=== PATIENT | female | born 1970 | race Caucasian/White ===

== ENCOUNTER 2024-02-23 12:12 | Observation (INO) | payer OTHER ==
[2024-02-23] MEDS ORDERED: LIDOCAINE 5% TOPICAL PATCH ONE (12:53)
[2024-02-23] MEDS ORDERED: KETOROLAC TROMETHAMINE 15 MG/ML VIAL ONE (12:53)
[2024-02-23 12:57] LABS: HEMATOCRIT 37.5 % (32.4-45.2); HEMOGLOBIN 12.1 G/dL (10.7-15.3); MCH 27.1 pg (25.7-33.7); MCHC 32.2 g/dl (32.0-36.0); MEAN CELL VOLUME 84.2 fl (80-96); MEAN PLT VOLUME 9.2 fl (7.5-11.1); PLATELET COUNT 246.9 10^3/uL (134-434); RBC 4.45 10^6/uL (3.60-5.2); WHITE BLOOD COUNT 8.6 10^3/uL (4.0-10.8)
[2024-02-23] MEDS: KETOROLAC TROMETHAMINE 15 MG/ML VIAL IVPUSH ONE (13:02)
[2024-02-23 13:22] LABS: PLATELET ESTIMATE ADEQUATE
[2024-02-23 13:25] LABS: ALBUMIN 4.7 g/dl (3.4-5.0); ALK PHOS 103 U/L (45-117); ANION GAP 6 mmol/L (4-13); BILIRUBIN,TOTAL 0.5 mg/dl (0.2-1); CALCIUM 9.9 mg/dl (8.5-10.1); CHLORIDE 102 mmol/L (98-107); CO2 31 mmol/L (21-32); CREATININE 0.7 mg/dl (0.6-1.3); GLUCOSE,RANDOM 118 mg/dl (74-106); POTASSIUM 3.6 mmol/L (3.5-5.1); SGOT/AST 27 U/L (15-37); SGPT/ALT 30 U/L (7-52); SODIUM 139 mmol/L (136-145); TOT PROT 7.3 g/dl (6.4-8.2)
[2024-02-23 13:33] LABS: EPITHELIAL CELLS 0-5 /hpf
[2024-02-23] MEDS ORDERED: morphine SULFATE 4 MG/ML VIAL ONE (14:09)
[2024-02-23] MEDS: morphine CARPU-JECT 4 MG/1 ML DISP.SYRIN IVPUSH ONE (14:18)
[2024-02-23] MEDS: SODIUM CHLORIDE 0.9% 500 ML INFUS.BAG IV ONE (15:27)
[2024-02-23] MEDS: LIDOCAINE 5% TOPICAL PATCH TP ONE (17:28)
[2024-02-23] MEDS: MAG HYDROX/AL HYDROX/SIMETH -MYLANTA- ORAL SUSPENSION PO ONE (18:50)
[2024-02-23] MEDS: ONDANSETRON 4 MG/2 ML VIAL IVPUSH ONE (18:50)
[2024-02-23] MEDS ORDERED: MAG HYDROX/AL HYDROX/SIMETH 30 ML UNIT-DOSE CUP ONE (18:51)
[2024-02-23] MEDS ORDERED: ACETAMINOPHEN INJECTION 100 ML ONE (18:51)
[2024-02-23] MEDS ORDERED: FAMOTIDINE 20 MG TABLET ONE (18:51)
[2024-02-23] MEDS ORDERED: ONDANSETRON 4 MG/2 ML VIAL ONE (18:51)
[2024-02-23] MEDS: FAMOTIDINE 20 MG TABLET PO ONE (18:51)
[2024-02-23] MEDS: ACETAMINOPHEN 1000 MG/100 ML BAG IVPB ONE (19:02)
[2024-02-23] MEDS ORDERED: METOCLOPRAMIDE HCL INJECTION 10 MG/2 ML VIAL ONE (19:48)
[2024-02-23] MEDS: METOCLOPRAMIDE HCL INJECTION 10 MG/2 ML VIAL IVPUSH ONE (20:01)
[2024-02-23 21:58] VITALS: BMI 27.3
[2024-02-23] MEDS: LIDOCAINE PATCH REMOVAL MC ONE (22:00)
[2024-02-24 01:43] VITALS: RESP 18
[2024-02-24] MEDS ORDERED: ONDANSETRON 4 MG/2 ML VIAL IVPUSH PRN (07:28)
[2024-02-24 08:32] LABS: HEMATOCRIT 34.7 % (32.4-45.2); HEMOGLOBIN 11.3 G/dL (10.7-15.3); MCH 27.2 pg (25.7-33.7); MCHC 32.5 g/dl (32.0-36.0); MEAN CELL VOLUME 83.8 fl (80-96); MEAN PLT VOLUME 9.8 fl (7.5-11.1); PLATELET COUNT 254.9 10^3/uL (134-434); RBC 4.14 10^6/uL (3.60-5.2); RDW 15.5 % (11.6-15.6); WHITE BLOOD COUNT 10.5 10^3/uL (4.0-10.8)
[2024-02-24 09:15] LABS: CALCIUM 9.7 mg/dl (8.5-10.1); CREATININE 0.8 mg/dl (0.6-1.3); MAGNESIUM 2.1 mg/dL (1.8-2.4); PHOSPHOROUS 4.3 (2.5-4.9); POTASSIUM 4.1 mmol/L (3.5-5.1)
[2024-02-24] MEDS: LOSARTAN POTASSIUM 50 MG TABLET PO SCH (09:28)
[2024-02-24] MEDS: ACETAMINOPHEN 500 MG TABLET (FP) PO SCH (09:29)
[2024-02-24] MEDS: NAPROXEN 500 MG TABLET PO SCH (09:29)
[2024-02-24] MEDS: FAMOTIDINE 20 MG TABLET PO SCH (09:30)
[2024-02-24] MEDS: ENOXAPARIN NA (PORCINE) 40 MG/0.4 ML DISP.SYRIN SQ SCH (09:30)
[2024-02-24] MEDS: LIDOCAINE 5% TOPICAL PATCH TP SCH (09:30)
[2024-02-24] MEDS ORDERED: INSULIN ASPART SLIDING SCALE (NOVOLOG) 1 VIAL SQ SCH (11:00)
[2024-02-24 14:13] VITALS: BP 133/80; PULSE 84; TEMP 98.6
[2024-02-24] MEDS ORDERED: LIDOCAINE PATCH REMOVAL MC SCH (22:00)
== END 2024-02-24 16:23 | disposition home or self-care (01) ==
LOC: FER 12:12 → FM/S 19:30
PROVIDERS: ADMIT Internal Medicine; ATTEND Internal Medicine
PROC: 3E023GC Introduction of Other Therapeutic Substance into Muscle, Percutaneous Approach (ICD-10-PCS; principal; 2024-02-23)
PROC: 3E0333Z Introduction of Anti-inflammatory into Peripheral Vein, Percutaneous Approach (ICD-10-PCS; 2024-02-23)
PROC: 3E033GC Introduction of Other Therapeutic Substance into Peripheral Vein, Percutaneous Approach (ICD-10-PCS; 2024-02-23)
PROC: 3E033NZ Introduction of Analgesics, Hypnotics, Sedatives into Peripheral Vein, Percutaneous Approach (ICD-10-PCS; 2024-02-23)
PROC: 3E0337Z Introduction of Electrolytic and Water Balance Substance into Peripheral Vein, Percutaneous Approach (ICD-10-PCS; 2024-02-23)
DX: M54.9 Dorsalgia, unspecified (principal); R07.9 Chest pain, unspecified; R11.0 Nausea; E11.9 Type 2 diabetes mellitus without complications; I10 Essential (primary) hypertension; K21.9 Gastro-esophageal reflux disease without esophagitis; R42 Dizziness and giddiness; R31.9 Hematuria, unspecified
CPT/HCPCS: 0241U-QW; 36415; 70450-TC; 71275-TC; 72128-TC; 72131-TC; 74174-TC; 74176-TC; 80048; 80053; 81003; 81015; 82962; 83735; 84100; 84443; 84484; 85027; 87086; 93005; 93306-TC; 96372; 96374; 96375; 97116-GP; 97161-GP; 99285-25; G0378; J0131

== ENCOUNTER 2024-08-11 10:09 | Inpatient (IN) | payer OTHER ==
[2024-08-11 10:30] VITALS: BMI 28.1
[2024-08-11] MEDS ORDERED: ACETAMINOPHEN INJECTION 100 ML ONE (10:54)
[2024-08-11] MEDS ORDERED: ONDANSETRON 4 MG/2 ML VIAL ONE (10:55)
[2024-08-11] MEDS: ACETAMINOPHEN 1000 MG/100 ML BAG IVPB ONE (11:16)
[2024-08-11] MEDS: SODIUM CHLORIDE 1,000 ML IV STA ×2 (11:16→12:33)
[2024-08-11] MEDS: ONDANSETRON 4 MG/2 ML VIAL IVPUSH ONE (11:17)
[2024-08-11 11:43] LABS: ABSOLUTE IMMATURE GRANULOCYTES 0.06 x10^3/uL (0.0-0.031); BASOPHILS # 0.02 x10^3/uL (0.01-0.08); EOSINOPHIL % 0.5 % (0.7-5.8); EOSINOPHILS # 0.07 x10^3/uL (0.04-0.36); HEMATOCRIT 37.9 % (34.1-44.9); HEMOGLOBIN 12.5 g/dL (11.2-15.7); MEAN PLT VOLUME 11.4 fl (9.4-12.3); MONOCYTE % 2.9 % (4.7-12.5); PLATELET COUNT 295 x10^3/uL (182-369); RDW 13.2 % (12.3-16.6)
[2024-08-11 11:50] LABS: INR 1.06 (0.83-1.09); PROTHROMBIN TIME (PATIENT) 11.6 SEC (9.7-13.0)
[2024-08-11 11:52] LABS: ACTIVATED PTT 25.9 SECONDS (25.2-36.5)
[2024-08-11 12:07] LABS: POTASSIUM 3.4 mmol/L (3.5-5.1)
[2024-08-11 12:09] LABS: ALBUMIN 4.4 g/dl (3.4-5.0); MAGNESIUM 1.7 mg/dL (1.8-2.4)
[2024-08-11 12:10] LABS: BLOOD UREA NITROGEN 15.2 mg/dL (7-18)
[2024-08-11 12:12] LABS: CREATININE 0.9 mg/dL (0.55-1.3)
[2024-08-11 12:14] LABS: BILIRUBIN,TOTAL 0.6 mg/dL (0.2-1)
[2024-08-11 12:15] LABS: PH,URINE 7.5 (5.0-8.0); URINE APPEARANCE CLEAR; URINE BILIRUBIN NEGATIVE (NEGATIVE); URINE COLOR YELLOW; URINE GLUCOSE (UA) NEGATIVE (NEGATIVE); URINE KETONE NEGATIVE (NEGATIVE); URINE PROTEIN NEGATIVE (NEGATIVE); URINE UROBILINOGEN 0.2 mg/dL (0.2-1.0)
[2024-08-11 12:17] LABS: URINE LEUK ESTERASE NEGATIVE (NEGATIVE); URINE NITRITE NEGATIVE (NEGATIVE)
[2024-08-11] MEDS ORDERED: MAGNESIUM SULFATE IN WATER 2 GM/50 ML IVPB IVPB ONE (13:47)
[2024-08-11] MEDS ORDERED: POTASSIUM CHLORIDE TABS 20 MEQ TABLET.ER (FP) PO ONE (13:47)
[2024-08-11] MEDS ORDERED: POTASSIUM CHLORIDE ORAL LIQUID 20 MEQ/15 ML ONE (13:48)
[2024-08-11] MEDS: MAGNESIUM SULFATE IN WATER 2 GM/50 ML IVPB IVPB ONE (13:58)
[2024-08-11] MEDS: POTASSIUM CHLORIDE ORAL LIQUID 20 MEQ/15 ML PO ONE (13:58)
[2024-08-11] MEDS ORDERED: TRIMETHOBENZAMIDE HCL 200MG/2ML INJ IM ONE (14:01)
[2024-08-11] MEDS: TRIMETHOBENZAMIDE HCL 200MG/2ML INJ IM ONE (14:09)
[2024-08-11] MEDS ORDERED: LORazepam 2 MG/ML SDV VIAL ONE (16:25)
[2024-08-11] MEDS: LORazepam 2 MG/ML SDV VIAL IVPUSH ONE (16:35)
[2024-08-11] MEDS: SODIUM CHLORIDE 0.45% 1,000 ML IV SCH (19:02)
[2024-08-11] MEDS: ACETAMINOPHEN 1000 MG/100 ML BAG IVPB PRN (20:08)
[2024-08-11] MEDS: ONDANSETRON 4 MG/2 ML VIAL IVPUSH PRN (20:08)
[2024-08-11] MEDS: INSULIN ASPART SLIDING SCALE (NOVOLOG) 1 VIAL SQ SCH (21:46)
[2024-08-11] MEDS: PROCHLORPERAZINE INJECTION 10 MG/2 ML VIAL IVPB ONE (23:24)
[2024-08-11] MEDS: KETOROLAC TROMETHAMINE 15 MG/ML VIAL IVPUSH ONE (23:24)
[2024-08-12 07:57] LABS: ABSOLUTE IMMATURE GRANULOCYTES 0.04 x10^3/uL (0.0-0.031); BASOPHILS # 0.02 x10^3/uL (0.01-0.08); EOSINOPHIL % 0.1 % (0.7-5.8); EOSINOPHILS # 0.01 x10^3/uL (0.04-0.36); HEMATOCRIT 35.6 % (34.1-44.9); HEMOGLOBIN 11.3 g/dL (11.2-15.7); MCHC 31.7 g/dl (32.2-35.5); MEAN PLT VOLUME 11.1 fl (9.4-12.3); MONOCYTE # 0.78 x10^3/uL (0.24-0.86); MONOCYTE % 7.6 % (4.7-12.5); PLATELET COUNT 255 x10^3/uL (182-369); RDW 13.7 % (12.3-16.6)
[2024-08-12 08:10] LABS: POTASSIUM 3.5 mmol/L (3.5-5.1)
[2024-08-12 08:25] LABS: ALBUMIN 3.9 g/dl (3.4-5.0); CALCIUM 9.2 mg/dL (8.5-10.1)
[2024-08-12 08:26] LABS: BLOOD UREA NITROGEN 20.6 mg/dL (7-18)
[2024-08-12 08:30] LABS: BILIRUBIN,TOTAL 0.4 mg/dL (0.2-1)
[2024-08-12] MEDS: LOSARTAN POTASSIUM 50 MG TABLET PO SCH (10:25)
[2024-08-12] MEDS: ENOXAPARIN NA (PORCINE) 40 MG/0.4 ML DISP.SYRIN SQ SCH (10:26)
[2024-08-12] MEDS ORDERED: INSULIN ASPART SLIDING SCALE (NOVOLOG) 1 VIAL SQ ONE (19:36)
[2024-08-12] MEDS: PANTOPRAZOLE 40 MG TABLET PO SCH (21:24)
[2024-08-12] MEDS: KETOROLAC TROMETHAMINE 15 MG/ML VIAL IVPUSH ONE (22:40)
[2024-08-13] MEDS: ACETAMINOPHEN 1000 MG/100 ML BAG IVPB ONE ×2 (05:52→14:30)
[2024-08-13] MEDS: POLYETHYLENE GLYCOL 3350 255 GM BTL PO ONE (20:39)
[2024-08-14] MEDS: ACETAMINOPHEN 1000 MG/100 ML BAG IVPB PRN (01:26)
[2024-08-14] MEDS: MELATONIN 5 MG TABLETS PO ONE (04:48)
[2024-08-14] MEDS: glipiZIDE 5 MG TABLET (FP) PO SCH (07:19)
[2024-08-14 07:23] LABS: ABSOLUTE IMMATURE GRANULOCYTES 0.01 x10^3/uL (0.0-0.031); BASOPHILS # 0.02 x10^3/uL (0.01-0.08); EOSINOPHIL % 1.3 % (0.7-5.8); EOSINOPHILS # 0.08 x10^3/uL (0.04-0.36); HEMATOCRIT 37.9 % (34.1-44.9); HEMOGLOBIN 12.2 g/dL (11.2-15.7); MCHC 32.2 g/dl (32.2-35.5); MEAN CELL VOLUME 83.7 fl (79.4-94.8); MEAN PLT VOLUME 10.5 fl (9.4-12.3); MONOCYTE # 0.58 x10^3/uL (0.24-0.86); MONOCYTE % 9.5 % (4.7-12.5); PLATELET COUNT 277 x10^3/uL (182-369); RDW 13.2 % (12.3-16.6)
[2024-08-14 07:43] LABS: POTASSIUM 3.3 mmol/L (3.5-5.1)
[2024-08-14 07:48] LABS: BLOOD UREA NITROGEN 14.4 mg/dL (7-18); CALCIUM 9.4 mg/dL (8.5-10.1)
[2024-08-14 07:51] LABS: CREATININE 0.9 mg/dL (0.55-1.3)
[2024-08-14 07:53] LABS: BILIRUBIN,TOTAL 0.4 mg/dL (0.2-1); TOT PROT 7.5 g/dl (6.4-8.2)
[2024-08-14] MEDS ORDERED: MIDAZOLAM HCL 2 MG/2 ML SINGLE DOSE VIAL ONE (13:39)
[2024-08-14 18:55] VITALS: RESP 18
[2024-08-15 14:10] VITALS: BP 114/66; PULSE 80; TEMP 98.4
== END 2024-08-15 18:39 | disposition home or self-care (01) | DRG 249 ==
LOC: JER 10:09 → JERBED 16:02 → J7W 17:11 → OBSVTOIN 17:57 → J7W 08-12 19:07
PROVIDERS: ADMIT Internal Medicine; ATTEND Internal Medicine
PROC: 0DBN8ZX Excision of Sigmoid Colon, Via Natural or Artificial Opening Endoscopic, Diagnostic (ICD-10-PCS; 2024-08-14)
PROC: 0DBH8ZX Excision of Cecum, Via Natural or Artificial Opening Endoscopic, Diagnostic (ICD-10-PCS; 2024-08-14)
PROC: 0DBB8ZX Excision of Ileum, Via Natural or Artificial Opening Endoscopic, Diagnostic (ICD-10-PCS; 2024-08-14)
PROC: 0DB98ZX Excision of Duodenum, Via Natural or Artificial Opening Endoscopic, Diagnostic (ICD-10-PCS; 2024-08-14)
PROC: 0DB68ZX Excision of Stomach, Via Natural or Artificial Opening Endoscopic, Diagnostic (ICD-10-PCS; 2024-08-14)
PROC: 0DBM8ZX Excision of Descending Colon, Via Natural or Artificial Opening Endoscopic, Diagnostic (ICD-10-PCS; principal; 2024-08-14 13:00)
DX: K52.9 Noninfective gastroenteritis and colitis, unspecified (principal); E11.9 Type 2 diabetes mellitus without complications; I10 Essential (primary) hypertension; D72.829 Elevated white blood cell count, unspecified; Z79.84 Long term (current) use of oral hypoglycemic drugs; K29.70 Gastritis, unspecified, without bleeding; K64.8 Other hemorrhoids; E88.89 Other specified metabolic disorders
CPT/HCPCS: 0241U-QW; 36415; 71045-TC-FY; 74177-TC; 76700-TC; 80053; 81003; 81015; 82962; 83036; 83690; 83735; 84484; 85025; 85610; 85730; 87045; 87046; 87077; 87086; 87186; 87324; 87449; 87798; 88305-TC; 88342-TC; 93005; 93010; 99285-25; G0378; J0131; Q9967